=== PATIENT | male | born 1995 | race African-American/Black ===

== ENCOUNTER 2023-04-26 07:02 | Emergency (ER) | payer MEDICAID ==
[~2023-04-26] VITALS: Ht 180.3 cm; Wt 72.0 kg
[2023-04-26 07:15] VITALS: O2SAT 98
[2023-04-26] MEDS: ACETAMINOPHEN 325MG TABLET PO ONE (08:56)
[2023-04-26 10:44] VITALS: BP 145/103; PULSE 75; RESP 18; TEMP 98
== END 2023-04-26 10:40 | disposition home or self-care (01) ==
LOC: ER 07:02
DX: B34.9 Viral infection, unspecified (principal); R05.9 Cough, unspecified; I10 Essential (primary) hypertension; Z20.822 Contact with and (suspected) exposure to COVID-19
CPT/HCPCS: 87426; 87804; 99283

== ENCOUNTER 2024-05-24 13:09 | Emergency (ER) | payer MEDICAID ==
[~2024-05-24] VITALS: Ht 180.3 cm; Wt 82.0 kg
[2024-05-24 13:11] VITALS: O2SAT 98
[2024-05-24 13:34] VITALS: BP 132/68; PULSE 88; RESP 16; TEMP 37.1; O2SAT 98
[2024-05-24 17:35] LABS: INFLUENZA TYPE A Presumptive Negative (Pres. Neg.)
[2024-05-24 17:36] LABS: INFLUENZA TYPE B Presumptive Negative (Pres. Neg.); RESPIRATORY SYNCYTIAL VIRUS Not Detected (Not Detectd)
== END 2024-05-24 15:24 | disposition home or self-care (01) ==
LOC: ER 13:09
DX: J06.9 Acute upper respiratory infection, unspecified (principal); B97.89 Other viral agents as the cause of diseases classified elsewhere
CPT/HCPCS: 87420; 87804 ×2; 99283; Z7610